=== PATIENT | female | born 1990 | race American Indian/Alaskan Native ===

== ENCOUNTER 2017-09-19 20:02 | Emergency (ER) | payer SELFPAY ==
[2017-09-19] MEDS ORDERED: TYLENOL PO ONE (20:33)
[2017-09-19 21:18] LABS: Basophils % (Auto) 0.2 % (0.0-1.8); Hematocrit 35.4 % (30.3-42.9); Hemoglobin 11.8 gm/dl (10.1-14.3); Lymphocytes # (Auto) 0.8 K/mm3 (1.2-5.4); Lymphocytes % (Auto) 6.6 % (13.4-35.0); Mean Corpuscular HGB Conc 33 % (30-34); Mean Corpuscular Hemoglobin 29 pg (28-32); Mean Corpuscular Volume 87 fl (79-97); Monocytes # (Auto) 1.2 K/mm3 (0.0-0.8); Monocytes % (Auto) 9.7 % (0.0-7.3); Platelet Count 191 K/mm3 (140-440); Red Blood Count 4.05 M/mm3 (3.65-5.03)
[2017-09-19 21:31] LABS: Alanine Aminotransferase 16 units/L (7-56); BUN/Creatinine Ratio 13; Blood Urea Nitrogen 9 mg/dL (7-17); Calcium 8.9 mg/dL (8.4-10.2); Hemolysis Index 1
--- NOTE | 2017-09-20 01:59 | Emergency Department Report ---
ED General Adult HPI - General Chief complaint: Upper Respiratory Infection Stated complaint: N/V,DIZZY,LIGHTHEADED Time Seen by Provider: 09/20/17 01:21 Source: patient, EMS Mode of arrival: Ambulatory Limitations: No Limitations - History of Present Illness Initial comments: Ms. Thomas is a 26-year-old female with history of tobacco abuse who presents with generalized malaise bodyaches. Fever noted in triage. She has difficulty breathing. Sore throat. Back and abdominal pain. Last menstrual period was 2 days ago. It was shorter than normal. She felt dizzy lightheaded. Unable to tolerate food. She is able to tolerate water. Has not eaten in 3 days since . -: Gradual Severity scale (0 -10): 9 - Related Data Previous Rx's Medication Instructions Recorded Last Taken Type Cephalexin [Keflex] 500 mg PO Q6HR 10 Days #40 capsule 09/20/17 Unknown Rx Promethazine [Phenergan TAB] 25 mg PO Q6HR PRN #10 tab 09/20/17 Unknown Rx Allergies Allergy/AdvReac Type Severity Reaction Status Date / Time No Known Allergies Allergy Verified 09/19/17 20:11 ED Review of Systems ROS: Stated complaint: N/V,DIZZY,LIGHTHEADED Other details as noted in HPI Comment: All other systems reviewed and negative Constitutional: fever, malaise Respiratory: cough Cardiovascular: denies: chest pain Gastrointestinal: abdominal pain, nausea, vomiting. denies: diarrhea, constipation ED Past Medical Hx - Past Medical History Previous Medical History?: No - Surgical History Past Surgical History?: No - Social History Smoking Status: Former Smoker - Medications Home Medications: Home Medications Medication Instructions Recorded Confirmed Last Taken Type Cephalexin [Keflex] 500 mg PO Q6HR 10 Days #40 capsule 09/20/17 Unknown Rx Promethazine [Phenergan TAB] 25 mg PO Q6HR PRN #10 tab 09/20/17 Unknown Rx ED Physical Exam - General Limitations: No Limitations General appearance: alert, in no apparent distress - Head Head exam: Present: atraumatic, normocephalic - Eye Eye exam: Present: normal appearance - ENT ENT exam: Present: mucous membranes moist - Neck Neck exam: Present: normal inspection. Absent: tenderness, meningismus - Respiratory Respiratory exam: Present: normal lung sounds bilaterally. Absent: respiratory distress, wheezes, rales, rhonchi - Cardiovascular Cardiovascular Exam: Present: regular rate, normal rhythm, normal heart sounds. Absent: systolic murmur, diastolic murmur, rubs, gallop - GI/Abdominal GI/Abdominal exam: Present: soft, normal bowel sounds. Absent: distended, tenderness, guarding, rebound - Extremities Exam Extremities exam: Present: normal inspection - Back Exam Back exam: Present: normal inspection - Neurological Exam Neurological exam: Present: alert, oriented X3 - Psychiatric Psychiatric exam: Present: normal affect, normal mood - Skin Skin exam: Present: warm, dry, intact, normal color. Absent: rash ED Course Vital Signs 09/19/17 09/19/17 09/19/17 20:03 20:11 20:38 Temperature 102.2 F H 102.2 F H Pulse Rate 114 H 114 H Respiratory 18 18 18 Rate Blood Pressure 107/49 107/49 Blood Pressure [Left] O2 Sat by Pulse 100 100 Oximetry 09/20/17 01:48 Temperature Pulse Rate 82 Respiratory 20 Rate Blood Pressure Blood Pressure 98/62 [Left] O2 Sat by Pulse 99 Oximetry ED Medical Decision Making - Lab Data Result diagrams: 09/19/17 21:02 09/19/17 21:02 - EKG Data -: EKG Interpreted by Me EKG shows normal: sinus rhythm, axis, intervals, QRS complexes, ST-T waves Rate: normal - EKG Data 09/20/17 02:00 NSR nl rate nl axis nl intervals no ST-T signs of ischemia no ST elevation rate 85 beats a minute - Medical Decision Making Febrile illness diffuse body aches and shortness of breath. With tobacco abuse antibiotics are for possible bronchitis. +UTI rx: keflex and promethazine Critical care attestation.: If time is entered above; I have spent that time in minutes in the direct care of this critically ill patient, excluding procedure time. ED Disposition Clinical Impression: UTI (urinary tract infection) Disposition: - TO HOME OR SELFCARE Is pt being admited?: No Does the pt Need Aspirin: No Condition: Stable Instructions: Urinary Tract Infection in Women (ED) Prescriptions: Cephalexin [Keflex] 500 mg PO Q6HR 10 Days #40 capsule Promethazine [Phenergan TAB] 25 mg PO Q6HR PRN #10 tab PRN Reason: Nausea Referrals: PRIMARY CARE, [Primary Care Provider] - 3-5 Days Time of Disposition: 03:34
[2017-09-20 02:44] VITALS: BP 98/62
[2017-09-20 03:06] LABS: Bacteria,Urine 2+ /HPF (Negative); Bilirubin,Urine NEG (Negative); Blood,Urine MOD (Negative); Color,Urine Yellow (Yellow); Mucus,Urine FEW /HPF
[2017-09-20 03:07] LABS: HCG Qualitative,Urine Negative (Negative)
== END 2017-09-20 03:35 | disposition home or self-care (01) ==
LOC: ED 20:02
DX: N39.0 Urinary tract infection, site not specified (principal); R53.81 Other malaise; M79.1 Myalgia; R50.9 Fever, unspecified; R07.0 Pain in throat; Z87.891 Personal history of nicotine dependence
CPT/HCPCS: 36415; 80053; 81001; 81025; 85025; 93005; 93010; 99284